=== PATIENT | female | born 1975 | race Caucasian/White ===

== ENCOUNTER 2017-04-26 08:43 | Emergency (ER) | payer BC ==
[2017-04-26] MEDS ORDERED: Proparacaine 0.5% Opth 15 ML BOT ONE (09:02)
[2017-04-26] MEDS ORDERED: Fluorescein Opthalmic Strip ONE ×2 (09:02→09:11)
[2017-04-26] MEDS ORDERED: Erythromycin Base 0.5% Oint 1 GM TUBE ONE (09:19)
== END 2017-04-26 09:26 | disposition home or self-care (01) ==
LOC: SCSER 08:43
DX: H10.9 Unspecified conjunctivitis (principal); F41.9 Anxiety disorder, unspecified; F17.210 Nicotine dependence, cigarettes, uncomplicated
CPT/HCPCS: 99282

== ENCOUNTER 2018-04-03 07:55 | Outpatient (CLI) | payer BC ==
--- NOTE | 2018-04-03 09:31 | RAD ---
CHEST TWO VIEWS: History: Wheezing, cough. Comparison: None. FINDINGS: Lungs are clear. No pneumothorax or effusion. Cardiac silhouette and mediastinal contours within norm al limits. IMPRESSION: No acute intrathoracic abnormality. POS: [facility]
== END 2018-04-03 07:56 | disposition home or self-care (01) ==
LOC: RAD-FRANK 07:55
PROVIDERS: ATTEND Nurse Practitioner Family
DX: J01.10 Acute frontal sinusitis, unspecified (principal); R06.2 Wheezing; R05 Cough; R09.81 Nasal congestion; F17.200 Nicotine dependence, unspecified, uncomplicated
CPT/HCPCS: 71046

== ENCOUNTER 2020-11-24 09:56 | Outpatient (CLI) | payer BC | END 2020-11-24 09:57 | disposition home or self-care (01) | LOC: RAD-FRANK 09:56 | PROVIDERS: ATTEND Nurse Practitioner Family | DX: Z01.419 Encounter for gynecological examination (general) (routine) without abnormal findings (principal); N32.81 Overactive bladder | CPT/HCPCS: 72100; 72220 ==

== ENCOUNTER 2020-12-09 10:11 | Outpatient (CLI) | payer BC | END 2020-12-09 10:12 | disposition home or self-care (01) | LOC: BICMRI 10:11 | PROVIDERS: ATTEND Nurse Practitioner Family | DX: N32.81 Overactive bladder (principal); R32 Unspecified urinary incontinence; M53.3 Sacrococcygeal disorders, not elsewhere classified; M47.816 Spondylosis without myelopathy or radiculopathy, lumbar region | CPT/HCPCS: 72148 ==

== ENCOUNTER 2022-05-24 12:35 | Outpatient (CLI) | payer OTHER | END 2022-05-24 12:36 | disposition home or self-care (01) | LOC: BICRAD 12:35 | PROVIDERS: ATTEND Chiropractor | DX: M54.2 Cervicalgia (principal); M54.50 Low back pain, unspecified; M79.671 Pain in right foot; M47.816 Spondylosis without myelopathy or radiculopathy, lumbar region | CPT/HCPCS: 72050; 72120 ==

== ENCOUNTER 2022-09-12 13:50 | Outpatient (CLI) | payer OTHER ==
[2022-09-12 14:29] LABS: Hematocrit 44.6 % (34.9-44.5); Hemoglobin 15.5 g/dL (12.0-15.5); Mean Corpuscular HGB CONC 34.8 g/dL (32.0-36.0); Mean Corpuscular Hemoglobin 32.4 pg (27.0-33.0); Mean Corpuscular Volume 93.3 fl (81.6-98.3); Mean Platelet Volume 9.1 fl (7.4-10.4); Platelet Count 295 10x3/uL (150-450); RBC Distribution Width 11.9 % (11.5-14.5); Red Blood Cell (RBC) Count 4.78 10x6/uL (3.90-5.03); White Blood Cell (WBC) Count 7.2 10x3/uL (3.5-10.5)
[2022-09-12 14:43] LABS: Anion Gap 14 mmol/L (10-20); BUN (Urea Nitrogen) 6 mg/dL (7.0-18.7); Calc. Creatinine Clearance 0 mL/min (70-130); Calcium 8.7 mg/dL (7.8-10.44); Carbon Dioxide 24 mmol/L (22-29); Chloride 105 mmol/L (98-107); Estimated GFR 89; Glucose 92 mg/dL (70-105); Sodium 139 mmol/L (136-145)
== END 2022-09-12 13:51 | disposition home or self-care (01) ==
LOC: LABBT 13:50
PROVIDERS: ATTEND Orthopaedic Surgery
DX: Z01.818 Encounter for other preprocedural examination (principal); M75.41 Impingement syndrome of right shoulder; M75.21 Bicipital tendinitis, right shoulder
CPT/HCPCS: 80048; 85027; 93005; 93010

== ENCOUNTER 2022-09-14 09:57 | Day surgery (SDC) | payer OTHER ==
[2022-09-14] MEDS ORDERED: Midazolam HCl 2 mg/2 ml Vial ONE (11:47)
[2022-09-14] MEDS ORDERED: fentaNYL 50 mcg/mL 1 mL Vial ONE ×2 (11:47→14:00)
[2022-09-14] MEDS ORDERED: Bupivacaine PF 0.5% 30 ML VIAL ONE (11:48)
[2022-09-14] MEDS ORDERED: Bupivacaine HCl 0.5%/Epinephrine 1:200,000/PF 30 ml Vial ONE (12:00)
[2022-09-14] MEDS ORDERED: Sodium Chloride 0.9% 100 ML ONE (12:02)
[2022-09-14] MEDS ORDERED: CEFAZOLIN 2 GM VIAL ONE (12:02)
[2022-09-14] MEDS ORDERED: Ketorolac Tromethamine 30 MG/ML VIAL ONE (12:35)
[2022-09-14] MEDS ORDERED: PROPOFOL 200 MG/20 ML VIAL ONE (12:35)
[2022-09-14] MEDS ORDERED: Dexamethasone 20 MG/5 ML VIAL ONE (12:35)
[2022-09-14] MEDS ORDERED: Rocuronium Bromide 10 MG/ML (10ML VIAL) ONE (12:35)
[2022-09-14] MEDS ORDERED: Lidocaine 1% PF 5 ML VIAL ONE (12:35)
[2022-09-14] MEDS ORDERED: Ondansetron PF 4 MG/2 ML Vial ONE (12:35)
[2022-09-14] MEDS ORDERED: NEOSTIGMINE 3 MG/3 ML SYR 3 MG/3 ML SYRINGE ONE (12:35)
[2022-09-14] MEDS ORDERED: Glycopyrrolate 0.2 MG/ML 5 ML SYRINGE ONE (12:35)
[2022-09-14] MEDS ORDERED: fentaNYL PF 100 MCG/2 ML SYRINGE ONE (12:35)
== END 2022-09-14 16:15 | disposition home or self-care (01) ==
LOC: SDC 09:57
PROVIDERS: ATTEND Orthopaedic Surgery
PROC: 0LS34ZZ Reposition Right Upper Arm Tendon, Percutaneous Endoscopic Approach (ICD-10-PCS; principal; 2022-09-14)
PROC: 0RNJ4ZZ Release Right Shoulder Joint, Percutaneous Endoscopic Approach (ICD-10-PCS; principal; 2022-09-14)
DX: M75.41 Impingement syndrome of right shoulder (principal); M75.21 Bicipital tendinitis, right shoulder; I10 Essential (primary) hypertension; F32.A Depression, unspecified; Z79.899 Other long term (current) drug therapy; Z90.710 Acquired absence of both cervix and uterus; Z88.2 Allergy status to sulfonamides; Z88.1 Allergy status to other antibiotic agents
CPT/HCPCS: C1713; J1100; J1885; J2250; J2405; J2704; J3010; J3490; S0020